=== PATIENT | male | born 1970 | race Caucasian/White ===

== ENCOUNTER → 2018-04-19 | Outpatient (CLI) | payer MEDICARE ==
[~2018-04-19] MED LIST: ALPR0.5T6 PO; BACL20TA PO; CARI350T14 PO; DIME240C PO; FING0.5C3; GADOBUTROL 10 MMOL/10 ML PFS ONE; IBUP-1223 PO; LEVE500T8 PO; LIDO700A5 TD; METH4TAB PO; NORCO; SOMA; TADA10TA PO; TEST2.5G TP; VARD10TA4 PO; [UNRECOGNIZED DRUG - CODE]; [UNRECOGNIZED DRUG - OTHER]
== END | disposition home or self-care (01) ==
LOC: CFH 15:10
PROVIDERS: ATTEND Psychiatry & Neurology Neurology
DX: G35 Multiple sclerosis (principal)
CPT/HCPCS: 70553; A9585